=== PATIENT | male | born 1995 | race Caucasian/White ===

== ENCOUNTER 2016-08-08 22:42 | Emergency (ER) | payer BC ==
[~2016-08-08] VITALS: Ht 182.9 cm; Wt 83.9 kg
[2016-08-08 22:45] VITALS: BP 136/89
== END 2016-08-09 01:23 | disposition home or self-care (01) ==
LOC: ER 22:42
DX: S00.86XA Insect bite (nonvenomous) of other part of head, initial encounter (principal); W57.XXXA Bitten or stung by nonvenomous insect and other nonvenomous arthropods, initial encounter; Y93.89 Activity, other specified; Y92.89 Other specified places as the place of occurrence of the external cause; Y99.8 Other external cause status